=== PATIENT | female | born 1970 | race Asian ===

== ENCOUNTER → 2023-12-31 08:28 | Outpatient (CLI) | payer OTHER, SELFPAY ==
--- NOTE | 2023-12-31 | DI.MG.S_ITS ---
UNILATERAL RIGHT DIGITAL DIAGNOSTIC MAMMOGRAM 3D/2D WITH ADDITIONAL VIEWS: 12/31/2023 CLINICAL: Additional evaluation requested from prior study. Comparison is made to exams dated: 12/02/2020 mammogram - [facility], 12/08/2023 mammogram, and 12/07/2022 mammogram - [facility]. The breasts are heterogeneously dense, which may obscure small masses (category c / 51-75% glandular tissue). There a few scattered round calcifications seen in all four quadrants. No other significant masses, calcifications, or other findings are seen in the breast. IMPRESSION: BENIGN There are benign calcifications in the right breast. There is no mammographic evidence of malignancy. A 1 year screening mammogram is recommended. Findings and recommendations were conveyed to the patient during today's evaluation. Based on the Tyrer Cuzick model (a risk assessment model) the patient's lifetime risk is 13.6% and her 10 year risk is 3.6%. According to the ACR, ACS, and NCCN guidelines, an annual breast MRI exam along with mammogram is recommended if the patient's lifetime risk is 20% or greater. This exam was interpreted at Station ID: [id number]. NOTE: For mammograms, a report in lay terms will be sent to the patient. Approximately 15% of breast malignancies will not be visualized mammographically. In the management of a palpable breast mass, a negative mammogram must not discourage biopsy of a clinically suspicious lesion. Electronically Signed By: Palma Luther M.D., Ph.D. eb/:01/01/2024 16:58:39 letter sent: Normal Exam ACR BI-RADS Category 2: Benign
== END ==
LOC: MAMMO 08:30
PROVIDERS: PCP Family Medicine; Referring Provider Family Medicine; Visit Provider Family Medicine
DX: R92.8 Other abnormal and inconclusive findings on diagnostic imaging of breast (principal); R92.333 Mammographic heterogeneous density, bilateral breasts; R92.1 Mammographic calcification found on diagnostic imaging of breast
CPT/HCPCS: 77065; G0279

== ENCOUNTER → 2024-11-20 11:57 | Outpatient (CLI) | payer OTHER, SELFPAY ==
--- NOTE | 2024-11-20 11:59 | DI.US.S_ITS ---
PROCEDURE: US RENAL COMPLETE INDICATIONS: MICROSCOPIC HEMATURIA TECHNIQUE: Real-time scanning was performed of the kidneys and bladder, with image documentation. COMPARISON: None. FINDINGS: Kidneys: Kidneys are normal in size. Right kidney measures 9.7 cm long; left kidney measures 9.8 cm long. Right renal cortical thickness is 1.2 cm; left renal cortical thickness is 1.4 cm. Renal cortical echotexture is normal. No hydronephrosis or nephrolithiasis. No suspicious solid mass lesions. Bladder: Incomplete distension of the bladder limits evaluation. Neither ureteral jet seen. Miscellaneous: No free pelvic fluid. IMPRESSION: Suboptimal evaluation of the bladder due to incomplete distention. No renal mass, stone or hydronephrosis. Dictated by: Jessica Bocanegra M.D. on 11/20/2024 at 17:45 Approved by: Jessica Bocanegra M.D. on 11/20/2024 at 17:46
== END ==
PROVIDERS: PCP Family Medicine; Referring Provider Family Medicine; Visit Provider Family Medicine
DX: R31.29 Other microscopic hematuria (principal)
CPT/HCPCS: 76770

== ENCOUNTER → 2025-01-01 12:21 | Outpatient (CLI) | payer OTHER, SELFPAY ==
--- NOTE | 2025-01-01 12:22 | DI.MG.S_ITS ---
MM screening mammo BI: 01/01/2025. BI-RADS: 1 CLINICAL: 54-year old female for bilateral screening mammogram. Tyrer-Cuzick lifetime risk of 22.5%. Current reported family history of breast cancer: sister. PRIOR EXAMS 12/31/2023, 12/02/2020, 11/20/2019, 10/02/2019. MAMMOGRAPHY TECHNIQUE: 2D and 3D (tomosynthesis) digital mammographic views obtained, with additional images as needed for full coverage. Current study was also evaluated with a Computer Aided Detection (CAD) system. DENSITY D. The breasts are extremely dense, which lowers the sensitivity of mammography. MAMMOGRAPHY FINDINGS Bilateral: No suspicious mass, asymmetry, microcalcification, or other abnormality seen. IMPRESSION: * No evidence of malignancy. RECOMMENDATIONS Bilateral * According to the Tyrer-Cuzick Risk Assessment Model, based on the information provided your patient has a greater than 20% lifetime risk for developing breast cancer. Consider supplemental screening with breast MRI and participation in a high risk screening program. * Annual screening mammography. OVERALL ASSESSMENT CATEGORY BI-RADS-1: Negative. The [employer] recommends annual screening mammography beginning at age 40 for women with average risk of breast cancer. ELECTRONICALLY SIGNED: Rebeca Garcias M.D. on 01/03/2025 at 03:56:29 PM PT Interpreting Station ID: [id number]
== END ==
LOC: MAMMO 12:22
PROVIDERS: PCP Family Medicine; Referring Provider Family Medicine; Visit Provider Family Medicine
DX: Z12.31 Encounter for screening mammogram for malignant neoplasm of breast (principal); R92.343 Mammographic extreme density, bilateral breasts; Z80.3 Family history of malignant neoplasm of breast
CPT/HCPCS: 77063; 77067